=== PATIENT | male | born 1980 | race African-American/Black ===

== ENCOUNTER 2020-10-06 13:44 | Inpatient (IN) | payer OTHER ==
[2020-10-06] MEDS ORDERED: MAG HYDROX/AL HYDROX/SIMETH 30 ML UNIT-DOSE CUP PO PRN (15:02)
[2020-10-06] MEDS ORDERED: IBUPROFEN 400 MG TABLET (FP) PO PRN (15:02)
[2020-10-06] MEDS ORDERED: ACETAMINOPHEN 325 MG TABLET (FP) PO PRN ×2 (15:02)
[2020-10-06] MEDS ORDERED: ONDANSETRON *ODT* 4 MG TABLET SL PRN (15:02)
[2020-10-06] MEDS ORDERED: MENTHOL/PHENOL 1 EACH UD MM PRN (15:02)
[2020-10-06] MEDS ORDERED: METHOCARBAMOL 500 MG TABLET PO PRN (15:02)
[2020-10-06] MEDS ORDERED: MAGNESIUM HYDROX 2400MG/30ML ORAL SUSPENSION 30 ML CUP PO PRN (15:02)
[2020-10-06] MEDS ORDERED: BISMUTH SUBSALICYLATE 524 MG/30 ML UD PO PRN (15:02)
[2020-10-06] MEDS ORDERED: chlordiazePOXIDE HCL 25 MG CAPSULE PO PRN (15:02)
[2020-10-06] MEDS ORDERED: MAGNESIUM CITRATE 300 ML BOTTLE PO PRN (15:02)
[2020-10-06 15:04] VITALS: BMI 29.7
[2020-10-06] MEDS ORDERED: chlordiazePOXIDE HCL 25 MG CAPSULE ONE (15:34)
[2020-10-06] MEDS: chlordiazePOXIDE HCL 25 MG CAPSULE PO SCH ×2 (16:34→22:12)
[2020-10-06] MEDS ORDERED: cloNIDine HCL 0.1 MG TABLET PO ONE (16:50)
[2020-10-06] MEDS: INSULIN SLIDING SCALE (NOVOLOG) 1 VIAL SQ SCH ×2 (16:56→22:12)
[2020-10-06] MEDS: hydrOXYzine PAMOATE 25 MG CAPSULE (FP) PO SCH ×2 (17:06→22:12)
[2020-10-06] MEDS ORDERED: ALBUTEROL SO4 HFA INHALER IH PRN (17:54)
[2020-10-06] MEDS ORDERED: hydrOXYzine PAMOATE 50 MG CAPSULE (FP) PO ONE (20:56)
[2020-10-06] MEDS ORDERED: MELATONIN 5 MG TABLETS PO SCH (22:00)
[2020-10-06] MEDS: ATORVASTATIN CA 80 MG TABLET (FP) PO SCH (22:12)
[2020-10-06] MEDS: THIAMINE HCL 100 MG TABLET (FP) PO SCH (22:12)
[2020-10-06] MEDS: CARVEDILOL 6.25 MG TABLET (FP) PO SCH (22:12)
[2020-10-07] MEDS: chlordiazePOXIDE HCL 25 MG CAPSULE PO SCH ×4 (05:42→22:30)
[2020-10-07] MEDS: hydrOXYzine PAMOATE 25 MG CAPSULE (FP) PO SCH (05:42)
[2020-10-07] MEDS: INSULIN SLIDING SCALE (NOVOLOG) 1 VIAL SQ SCH ×4 (07:44→22:37)
[2020-10-07] MEDS ORDERED: INSULIN SLIDING SCALE (NOVOLOG) 1 VIAL SQ ONE (07:57)
[2020-10-07] MEDS ORDERED: MELATONIN 5 MG TABLETS PO PRN (08:41)
[2020-10-07] MEDS: PRENATAL VITAMINS W/ FOLIC ACID TABLET (FP) PO SCH (10:17)
[2020-10-07] MEDS: busPIRone HCL 10 MG TABLET (FP) PO SCH ×2 (10:17→22:30)
[2020-10-07] MEDS: LISINOPRIL 20 MG TABLET PO SCH (10:18)
[2020-10-07] MEDS: CARVEDILOL 6.25 MG TABLET (FP) PO SCH ×2 (10:18→22:30)
[2020-10-07] MEDS: ASPIRIN COATED 81 MG TABLET.EC PO SCH (10:19)
[2020-10-07 10:22] LABS: POTASSIUM 4.4 mmol/L (3.5-5.1)
[2020-10-07 10:25] LABS: HEMATOCRIT 38.9 % (35.4-49); HEMOGLOBIN 12.6 GM/dL (11.7-16.9); MCH 27.9 pg (25.7-33.7); MCHC 32.5 g/dl (32.0-35.9); MEAN CELL VOLUME 85.9 fl (80-96); MEAN PLT VOLUME 8.2 fl (7.5-11.1); PLATELET COUNT 179 K/MM3 (134-434); RBC 4.53 M/mm3 (4.00-5.60); RDW 18.3 % (11.9-15.9); WHITE BLOOD COUNT 3.4 K/mm3 (4.0-10.0)
[2020-10-07 10:35] LABS: CALCIUM 9.2 mg/dL (8.5-10.1)
[2020-10-07 10:36] LABS: ALBUMIN 3.6 g/dl (3.4-5.0); BLOOD UREA NITROGEN 19.4 mg/dL (7-18)
[2020-10-07 10:38] LABS: BILIRUBIN,TOTAL 1.7 mg/dL (0.2-1)
[2020-10-07 10:39] LABS: TOT PROT 7.2 g/dl (6.4-8.2)
[2020-10-07 10:43] LABS: SICKLE CELL SCREEN NEGATIVE (NEGATIVE)
[2020-10-07] MEDS: hydrOXYzine PAMOATE 50 MG CAPSULE (FP) PO PRN (17:19)
[2020-10-07] MEDS: ATORVASTATIN CA 80 MG TABLET (FP) PO SCH (22:30)
[2020-10-07] MEDS: THIAMINE HCL 100 MG TABLET (FP) PO SCH (22:30)
[2020-10-08] MEDS: chlordiazePOXIDE HCL 25 MG CAPSULE PO SCH ×3 (05:12→17:31)
[2020-10-08] MEDS: hydrOXYzine PAMOATE 50 MG CAPSULE (FP) PO PRN ×3 (05:17→17:37)
[2020-10-08] MEDS: INSULIN SLIDING SCALE (NOVOLOG) 1 VIAL SQ SCH ×3 (07:32→17:37)
[2020-10-08] MEDS ORDERED: INSULIN SLIDING SCALE (NOVOLOG) 1 VIAL SQ ONE (08:09)
[2020-10-08] MEDS: ASPIRIN COATED 81 MG TABLET.EC PO SCH (10:07)
[2020-10-08] MEDS: LISINOPRIL 20 MG TABLET PO SCH (10:07)
[2020-10-08] MEDS: PRENATAL VITAMINS W/ FOLIC ACID TABLET (FP) PO SCH (10:07)
[2020-10-08] MEDS: busPIRone HCL 10 MG TABLET (FP) PO SCH (10:07)
[2020-10-08] MEDS: CARVEDILOL 6.25 MG TABLET (FP) PO SCH (10:08)
[2020-10-08 10:18] LABS: POTASSIUM 4.3 mmol/L (3.5-5.1)
[2020-10-08 10:20] LABS: CALCIUM 8.9 mg/dL (8.5-10.1)
[2020-10-08 10:24] LABS: CREATININE 1.2 mg/dL (0.55-1.3)
[2020-10-08 18:27] LABS: URINE APPEARANCE CLEAR; URINE BILIRUBIN NEGATIVE (NEGATIVE); URINE COLOR YELLOW; URINE GLUCOSE (UA) 3+ (NEGATIVE); URINE KETONE NEGATIVE (NEGATIVE); URINE LEUK ESTERASE NEGATIVE (NEGATIVE); URINE NITRITE NEGATIVE (NEGATIVE); URINE PROTEIN NEGATIVE (NEGATIVE); URINE UROBILINOGEN 0.2 mg/dL (0.2-1.0)
[2020-10-08 20:16] VITALS: BP 128/91; PULSE 98; TEMP 97.1
[2020-10-09] MEDS ORDERED: chlordiazePOXIDE HCL 10 MG CAPSULE PO PRN
[2020-10-09] MEDS ORDERED: chlordiazePOXIDE HCL 10 MG CAPSULE PO SCH (05:00)
[2020-10-10] MEDS ORDERED: chlordiazePOXIDE HCL 10 MG CAPSULE PO SCH (05:00)
[2020-10-11] MEDS ORDERED: chlordiazePOXIDE HCL 10 MG CAPSULE PO ONE (05:00)
== END 2020-10-08 20:00 | disposition left against medical advice (07) | DRG 770 ==
LOC: YASAS 13:44 → Y3N 15:31
PROVIDERS: ADMIT Allergy & Immunology; ATTEND Allergy & Immunology
PROC: HZ2ZZZZ Detoxification Services for Substance Abuse Treatment (ICD-10-PCS; principal; 2020-10-06)
DX: F10.230 Alcohol dependence with withdrawal, uncomplicated (principal); F10.24 Alcohol dependence with alcohol-induced mood disorder; F10.282 Alcohol dependence with alcohol-induced sleep disorder; F10.280 Alcohol dependence with alcohol-induced anxiety disorder; F41.9 Anxiety disorder, unspecified; F32.9 Major depressive disorder, single episode, unspecified; D72.819 Decreased white blood cell count, unspecified; E78.5 Hyperlipidemia, unspecified; E11.9 Type 2 diabetes mellitus without complications; Z79.4 Long term (current) use of insulin; J45.909 Unspecified asthma, uncomplicated; I25.10 Atherosclerotic heart disease of native coronary artery without angina pectoris; I10 Essential (primary) hypertension; Z95.5 Presence of coronary angioplasty implant and graft; Z56.0 Unemployment, unspecified; Z59.0 Homelessness; Z91.013 Allergy to seafood
CPT/HCPCS: 36415; 80048; 80053; 81003; 82962; 85027; 85660; 86780; 93005; 93010; C9803; J0735; U0003

== ENCOUNTER 2022-12-29 17:42 | Inpatient (IN) | payer OTHER ==
[2022-12-29 19:49] VITALS: BMI 30.4
[2022-12-29] MEDS ORDERED: LOPERAMIDE HCL 2 MG CAPSULE PO PRN (20:27)
[2022-12-29] MEDS ORDERED: chlordiazePOXIDE HCL 25 MG CAPSULE PO ONE (20:27)
[2022-12-29] MEDS ORDERED: ACETAMINOPHEN 325 MG TABLET (FP) PO PRN ×2 (20:27)
[2022-12-29] MEDS ORDERED: DICYCLOMINE HCL 10 MG CAPSULE PO PRN (20:27)
[2022-12-29] MEDS ORDERED: guaiFENesin 200 MG/10 ML 10 ML UNIT-DOSE CUPS PO PRN (20:27)
[2022-12-29] MEDS ORDERED: IBUPROFEN 600 MG TABLET (FP) PO PRN (20:27)
[2022-12-29] MEDS ORDERED: BENZOCAINE/MENTHOL (CHLORASEPTIC ) LOZENGE MM PRN (20:27)
[2022-12-29] MEDS ORDERED: IBUPROFEN 400 MG TABLET (FP) PO PRN (20:27)
[2022-12-29] MEDS ORDERED: MAGNESIUM HYDROX 2400MG/30ML ORAL SUSPENSION 30 ML CUP PO PRN (20:27)
[2022-12-29] MEDS ORDERED: P-EPHED 60MG/TRIPROLIDI 2.5MG TABLET PO PRN (20:27)
[2022-12-29] MEDS ORDERED: POLYETHYLENE GLYCOL (HEALTHYLAX) 3350 17 GM PACKET PO PRN (20:27)
[2022-12-29] MEDS ORDERED: chlordiazePOXIDE HCL 25 MG CAPSULE PO PRN (20:27)
[2022-12-29] MEDS ORDERED: BISMUTH SUBSALICYLATE 524 MG/30 ML PO PRN (20:27)
[2022-12-29] MEDS ORDERED: ONDANSETRON *ODT* 4 MG TABLET SL PRN (20:27)
[2022-12-29] MEDS ORDERED: MAG HYDROX/AL HYDROX/SIMETH 30 ML UNIT-DOSE CUP PO PRN (20:27)
[2022-12-29] MEDS ORDERED: ASPIRIN COATED 81 MG TABLET.EC PO SCH (20:45)
[2022-12-29] MEDS ORDERED: chlordiazePOXIDE HCL 25 MG CAPSULE ONE (20:46)
[2022-12-29] MEDS ORDERED: ASPIRIN 81 MG CHEWABLE TABLETS PO ONE (20:50)
[2022-12-29] MEDS: INSULIN SLIDING SCALE (NOVOLOG) 1 VIAL SQ SCH ×2 (21:07→22:13)
[2022-12-29] MEDS: METHOCARBAMOL 500 MG TABLET PO PRN (21:56)
[2022-12-29] MEDS: CARVEDILOL 6.25 MG TABLET (FP) PO SCH (21:56)
[2022-12-29] MEDS: hydrOXYzine PAMOATE 25 MG CAPSULE (FP) PO PRN (21:56)
[2022-12-29] MEDS: MELATONIN 5 MG TABLETS PO PRN (22:15)
[2022-12-29] MEDS: THIAMINE HCL 100 MG TABLET (FP) PO SCH (22:15)
[2022-12-29] MEDS: chlordiazePOXIDE HCL 25 MG CAPSULE PO SCH (22:56)
[2022-12-29] MEDS: levETIRAcetam 500 MG TABLET (FP) PO SCH (22:56)
[2022-12-30] MEDS: chlordiazePOXIDE HCL 25 MG CAPSULE PO SCH ×4 (05:48→22:26)
[2022-12-30] MEDS: INSULIN SLIDING SCALE (NOVOLOG) 1 VIAL SQ SCH ×4 (07:03→22:24)
[2022-12-30] MEDS ORDERED: INSULIN SLIDING SCALE (NOVOLOG) 1 VIAL SQ ONE (07:05)
[2022-12-30] MEDS: ASPIRIN COATED 81 MG TABLET.EC PO SCH (10:30)
[2022-12-30] MEDS: PRENATAL VITAMINS W/ FOLIC ACID TABLET (FP) PO SCH (10:30)
[2022-12-30] MEDS: CARVEDILOL 6.25 MG TABLET (FP) PO SCH ×2 (11:29→22:24)
[2022-12-30 11:30] LABS: HEMATOCRIT 37.5 % (35.4-49); MCH 27.9 pg (25.7-33.7); MCHC 32.1 g/dl (32.0-35.9); MEAN PLT VOLUME 7.5 fl (7.5-11.1); PLATELET COUNT 358 10^3/uL (134-434); RBC 4.31 M/mm3 (4.00-5.60); RDW 15.1 % (11.9-15.9); WHITE BLOOD COUNT 4.8 K/mm3 (4.0-10.0)
[2022-12-30 11:55] LABS: CALCIUM 9.1 mg/dL (8.5-10.1)
[2022-12-30 11:59] LABS: CREATININE 0.8 mg/dL (0.55-1.3)
[2022-12-30 12:00] LABS: BILIRUBIN,TOTAL 0.6 mg/dL (0.2-1); TOT PROT 6.2 g/dl (6.4-8.2)
[2022-12-30] MEDS: MIRTAZAPINE 15 MG TABLET (FP) PO SCH (22:24)
[2022-12-30] MEDS: MELATONIN 5 MG TABLETS PO PRN (22:25)
[2022-12-30] MEDS: levETIRAcetam 500 MG TABLET (FP) PO SCH (22:25)
[2022-12-30] MEDS: ATORVASTATIN CA 80 MG TABLET (FP) PO SCH (22:25)
[2022-12-30] MEDS: THIAMINE HCL 100 MG TABLET (FP) PO SCH (22:25)
[2022-12-31] MEDS: chlordiazePOXIDE HCL 25 MG CAPSULE PO SCH ×4 (05:50→23:03)
[2022-12-31] MEDS: hydrOXYzine PAMOATE 25 MG CAPSULE (FP) PO PRN (05:51)
[2022-12-31] MEDS ORDERED: INSULIN SLIDING SCALE (NOVOLOG) 1 VIAL SQ ONE (06:20)
[2022-12-31] MEDS: INSULIN SLIDING SCALE (NOVOLOG) 1 VIAL SQ SCH ×4 (06:39→21:15)
[2022-12-31] MEDS: PRENATAL VITAMINS W/ FOLIC ACID TABLET (FP) PO SCH (10:11)
[2022-12-31] MEDS: ASPIRIN COATED 81 MG TABLET.EC PO SCH (10:11)
[2022-12-31] MEDS: CARVEDILOL 6.25 MG TABLET (FP) PO SCH ×2 (10:11→23:01)
[2022-12-31] MEDS: NYSTATIN 100,000 UNIT/GM TOPICAL CREAM 15 GM TUBE TP SCH (22:58)
[2022-12-31] MEDS: MELATONIN 5 MG TABLETS PO PRN (22:58)
[2022-12-31] MEDS: ATORVASTATIN CA 80 MG TABLET (FP) PO SCH (22:59)
[2022-12-31] MEDS: MIRTAZAPINE 15 MG TABLET (FP) PO SCH (23:01)
[2022-12-31] MEDS: levETIRAcetam 500 MG TABLET (FP) PO SCH (23:01)
[2022-12-31] MEDS: METHOCARBAMOL 500 MG TABLET PO PRN (23:02)
[2022-12-31] MEDS: THIAMINE HCL 100 MG TABLET (FP) PO SCH (23:03)
[2023-01-01] MEDS ORDERED: chlordiazePOXIDE HCL 10 MG CAPSULE PO PRN
[2023-01-01] MEDS: hydrOXYzine PAMOATE 25 MG CAPSULE (FP) PO PRN (05:47)
[2023-01-01] MEDS: chlordiazePOXIDE HCL 10 MG CAPSULE PO SCH ×4 (05:47→23:24)
[2023-01-01] MEDS: INSULIN SLIDING SCALE (NOVOLOG) 1 VIAL SQ SCH ×4 (07:50→22:08)
[2023-01-01] MEDS ORDERED: INSULIN SLIDING SCALE (NOVOLOG) 1 VIAL SQ ONE (07:52)
[2023-01-01 09:03] VITALS: RESP 18
[2023-01-01] MEDS: PRENATAL VITAMINS W/ FOLIC ACID TABLET (FP) PO SCH (10:42)
[2023-01-01] MEDS: CARVEDILOL 6.25 MG TABLET (FP) PO SCH ×2 (10:42→23:22)
[2023-01-01] MEDS: ASPIRIN COATED 81 MG TABLET.EC PO SCH (10:43)
[2023-01-01] MEDS: NYSTATIN 100,000 UNIT/GM TOPICAL CREAM 15 GM TUBE TP SCH ×2 (10:43→23:45)
[2023-01-01] MEDS: ATORVASTATIN CA 80 MG TABLET (FP) PO SCH (23:22)
[2023-01-01] MEDS: MELATONIN 5 MG TABLETS PO PRN (23:22)
[2023-01-01] MEDS: MIRTAZAPINE 15 MG TABLET (FP) PO SCH (23:22)
[2023-01-01] MEDS: METHOCARBAMOL 500 MG TABLET PO PRN (23:22)
[2023-01-01] MEDS: THIAMINE HCL 100 MG TABLET (FP) PO SCH (23:23)
[2023-01-01] MEDS: levETIRAcetam 500 MG TABLET (FP) PO SCH (23:24)
[2023-01-02] MEDS ORDERED: chlordiazePOXIDE HCL 10 MG CAPSULE PO SCH (05:00)
[2023-01-02] MEDS: INSULIN SLIDING SCALE (NOVOLOG) 1 VIAL SQ SCH ×2 (06:42→11:34)
[2023-01-02 09:02] VITALS: BP 131/77; PULSE 68; TEMP 98.3
[2023-01-02] MEDS: PRENATAL VITAMINS W/ FOLIC ACID TABLET (FP) PO SCH (10:33)
[2023-01-02] MEDS: CARVEDILOL 6.25 MG TABLET (FP) PO SCH (10:33)
[2023-01-02] MEDS: ASPIRIN COATED 81 MG TABLET.EC PO SCH (10:33)
[2023-01-02] MEDS: NYSTATIN 100,000 UNIT/GM TOPICAL CREAM 15 GM TUBE TP SCH (10:35)
[2023-01-03] MEDS ORDERED: chlordiazePOXIDE HCL 10 MG CAPSULE PO ONE (05:00)
== END 2023-01-02 13:01 | disposition home or self-care (01) | DRG 775 ==
LOC: YASAS 17:42 → Y3N 21:00
PROVIDERS: ADMIT Allergy & Immunology; ATTEND Surgery
PROC: HZ2ZZZZ Detoxification Services for Substance Abuse Treatment (ICD-10-PCS; principal; 2022-12-29)
DX: F10.230 Alcohol dependence with withdrawal, uncomplicated (principal); I25.10 Atherosclerotic heart disease of native coronary artery without angina pectoris; I10 Essential (primary) hypertension; I25.2 Old myocardial infarction; Z95.5 Presence of coronary angioplasty implant and graft; E78.5 Hyperlipidemia, unspecified; E11.65 Type 2 diabetes mellitus with hyperglycemia; Z79.4 Long term (current) use of insulin
CPT/HCPCS: 36415; 80053; 82962; 85027; 86780; 87811; C9803-CS; U0003; U0005